=== PATIENT | male | born 1945 | race Caucasian/White ===

== ENCOUNTER 2023-01-03 06:00 | Observation (INO) ==
--- NOTE | 2022-12-12 13:23 | History & Physical Report ---
Date of Service December 12, 2022 date of surgery: 01/03/23 Procedure: Right Total Knee Arthroplasty Surgeon: Reginald Kauffman Assessment & Plan (1) Arthritis of right knee: Plan: Risk and benefits of the procedure were discussed in detail, patient would like to proceed with surgical invention. Plan for right total knee arthroplasty with overnight stay, plan for discharge home with home health physical therapy. Will place on aspirin 81 mg twice a day for 1 month postop, he will follow-up in the office 2 weeks after surgery, sooner if he is having any issues The risks and benefits have been discussed including, but not limited to, risk of infection, nerve injury, stiffness, loss of motion, failure to improve, etc. Reasonable outcomes and options of treatment were discussed. An explanation of appropriate alternatives to the procedure that may be advantageous were discussed and their risks and benefits, as well as the risks and benefits of not proceeding with treatment. I offered to answer any additional inquiries concerning the treatment involved. All the patient's questions were answered. The patient is agreeable, understanding of the treatment plan and alternatives, and wishes to proceed with the treatment plan. History of Present Illness Chief Complaint: Right knee pain Primary Care Provider: Caro Esqueda Modesto Cortez Is a pleasant 77-year-old male presented for preop evaluation prior to his right total knee replacement. He states has been a pain in that knee for many years now which is gradually worsened and is now affecting his daily activities including walking standing using stairs, he has undergone conservative measures including previous viscosupplementation as well as mult iple cortisone injections without much relief. He tried oral anti- inflammatories and Tylenol as well, as well as participated in physical therapy and using a knee sleeve. X-rays were reviewed which show advanced generative changes to his right knee and after discussing further care like to proceed with right total knee arthroplasty Allergies Allergy/AdvReac Type Severity Reaction Status Date / Time grass pollen-perennial rye, Allergy Unknown HAY FEVER Verified 12/11/22 10:16 standar No Known Drug Allergies Allergy Unknown NKDA Verified 12/11/22 10:16 pollen extracts Allergy Unknown HAY FEVER Verified 12/11/22 10:16 Home Medications Medication Instructions Recorded Confirmed Type albuterol sulfate 90 mcg/actuation 1 inh inhalation QID PRN Wheezing 12/11/22 12/11/22 History aerosol inhaler allopurinol 100 mg tablet 100 mg PO BID 12/11/22 12/11/22 History ascorbate calcium (vitamin C) 500 500 mg PO DAILY 12/11/22 12/11/22 History mg tablet cetirizine 10 mg tablet 10 mg PO QAM 12/11/22 12/11/22 History cholecalciferol (vitamin D3) 125 125 mcg PO DAILY 12/11/22 12/11/22 History mcg (5,000 unit) tablet (Vitamin D3) choline 600 mg tablet 1,000 mg PO DAILY 12/11/22 12/11/22 History clopidogrel 75 mg tablet (Plavix) 75 mg PO QAM 12/11/22 12/11/22 History coenzyme Q10 200 mg capsule (Co 200 mg PO DAILY 12/11/22 12/11/22 History Q-10) cyanocobalamin (vitamin B-12) 100 100 mcg PO DAILY 12/11/22 12/11/22 History mcg tablet folic acid 400 mcg tablet 0.4 mg PO DAILY 12/11/22 12/11/22 History furosemide 20 mg tablet (Lasix) 20 mg PO DAILY PRN Edema 12/11/22 12/11/22 History hydroxychloroquine 200 mg tablet 200 mg PO BID 12/11/22 12/11/22 History (Plaquenil) inositol-choline bit-B cplx-C 1 cap PO DAILY 12/11/22 12/11/22 History capsule losartan 100 mg tablet 100 mg PO QAM 12/11/22 12/11/22 History melatonin 10 mg tablet 10 mg PO HS PRN Sleep 12/11/22 12/11/22 History metoprolol tartrate 25 mg tablet 25 mg PO BID 12/11/22 12/11/22 History pantoprazole 40 mg tablet,delayed 40 mg PO QAM 12/11/22 12/11/22 History release spironolactone 25 mg tablet 25 mg PO QAM 12/11/22 12/11/22 History zinc acetate 50 mg (zinc) capsule 50 mg PO DAILY 12/11/22 12/11/22 History Past Med/Surg History Medical History Asthma rare res inh use Diverticular disease GERD (gastroesophageal reflux disease) Hypertension Implantable loop recorder present placed November 2022 Prostate cancer 2009 > radiation, no surgery Sleep apnea no device Stroke hx of x2 > reason for Loop recorder placement > most recent Jun 2022 > no residual effects > following with [facility] for neuro Surgical History H/O hemorrhoidectomy History of arthroscopy left shoulder History of cardiac cath over 10 yrs ago History of cataract surgery bilat History of colonoscopy History of tooth extraction Hx of detached retina repair clips and pins present > bilat Family History Mother Diabetes Brother Diabetes Sister Diabetes Social History Smoking Status: Never smoker Second Hand Exposure: No; Do You Dip or Chew Tobacco: No; Tobacco Cessation Education Requested by Patient: No Hx Alcohol Use: Yes Alcohol type: wine and hard liquor Hx Substance Use: No Preferred Language: Japanese Communication Ability: Effective Roll Operator Required: No Beliefs That Will Affect Care: None Current Living Situation: Spouse Other Information That Helps Us Care for You: No Feels Safe at Home: Yes Safety Concerns: Feels Safe At This Time Assistive Devices: Glasses Assistive Devices Comment: front teeth capped Review of Systems Review of Systems: All systems reviewed & are unremarkable except as noted in HPI & below Constitutional: no fever, no chills and no sweats Respiratory: no cough and no dyspnea Cardiovascular: no chest pain, no dyspnea and no orthopnea Gastrointestinal: no abdominal pain, no nausea and no vomiting Musculoskeletal: as per Subjective / HPI Physical Exam Physical Exam: HT: 5ft 9.5in WT: 105.7kg Constitutional: WD/WN, vitals as above no acute distress Respiratory: normal respiratory effort, lungs clear to auscultation no respiratory distress, no labored breathing and does not use accessory muscles Cardiovascular: RRR, no murmur, no edema Gastrointestinal (Abdomen): normal bowel sounds, soft, nontender, no hepatosplenomegaly Musculoskeletal: Knee: + knee abnormal to inspection (Right knee: ), + effusion (+1 effusion), + limited ROM of knee (ROM 0/3/110), + knee ROM with crepitation, + joint line tenderness (medial joint line) and + Kenia's sign positive; no deformity, no skin erythema, no ecchymosis, no valgus laxity, no varus laxity, anterior drawer test negative, Siria's sign negative and pivot shift test negative Results & Data Results & Data Diagnostic Findings Right Knee X-ray: Right knee series showing advanced degenerative changes to the right knee, narrowing of the medial compartment and patello-femoral joint with patellar spurring noted, findings showing joint space narrowing of the medial compartment and patello-femoral joint, osteophyte formation and subchondral sclerosis noted. overall varus alignment. no acute bony pathology noted.
--- NOTE | 2022-12-14 12:06 | PAT Medication Instructions ---
Medication Instructions Date of Service December 14, 2022 Home Medications albuterol sulfate 90 mcg/actuation aerosol inhaler 1 inh inhalation QID PRN Wheezing allopurinol 100 mg tablet 100 mg PO BID ascorbate calcium (vitamin C) 500 mg tablet 500 mg PO DAILY cetirizine 10 mg tablet 10 mg PO QAM cholecalciferol (vitamin D3) 125 mcg (5,000 unit) tablet (Vitamin D3) 125 mcg PO DAILY choline 600 mg tablet 1,000 mg PO DAILY clopidogrel 75 mg tablet (Plavix) 75 mg PO QAM coenzyme Q10 200 mg capsule (Co Q-10) 200 mg PO DAILY cyanocobalamin (vitamin B-12) 100 mcg tablet 100 mcg PO DAILY folic acid 400 mcg tablet 0.4 mg PO DAILY furosemide 20 mg tablet (Lasix) 20 mg PO DAILY PRN Edema hydroxychloroquine 200 mg tablet (Plaquenil) 200 mg PO BID inositol-choline bit-B cplx-C capsule 1 cap PO DAILY losartan 100 mg tablet 100 mg PO QAM melatonin 10 mg tablet 10 mg PO HS PRN Sleep metoprolol tartrate 25 mg tablet 25 mg PO BID pantoprazole 40 mg tablet,delayed release 40 mg PO QAM spironolactone 25 mg tablet 25 mg PO QAM zinc acetate 50 mg (zinc) capsule 50 mg PO DAILY ASK your prescriber and surgeon clopidogrel 75 mg tablet (Plavix) 75 mg PO QAM (will need to hold Plavix/clopidogrel for at least 7 days prior to surgery in order to get spinal anesthesia) hydroxychloroquine 200 mg tablet (Plaquenil) 200 mg PO BID STOP taking 2 weeks before surgery choline 600 mg tablet 1,000 mg PO DAILY coenzyme Q10 200 mg capsule (Co Q-10) 200 mg PO DAILY inositol-choline bit-B cplx-C capsule 1 cap PO DAILY DO NOT take the morning of surgery ascorbate calcium (vitamin C) 500 mg tablet 500 mg PO DAILY cetirizine 10 mg tablet 10 mg PO QAM cholecalciferol (vitamin D3) 125 mcg (5,000 unit) tablet (Vitamin D3) 125 mcg PO DAILY cyanocobalamin (vitamin B-12) 100 mcg tablet 100 mcg PO DAILY folic acid 400 mcg tablet 0.4 mg PO DAILY furosemide 20 mg tablet (Lasix) 20 mg PO DAILY PRN Edema losartan 100 mg tablet 100 mg PO QAM spironolactone 25 mg tablet 25 mg PO QAM zinc acetate 50 mg (zinc) capsule 50 mg PO DAILY Take morning of surgery With a small sip of water, OTHERWISE NOTHING TO EAT OR DRINK AFTER MIDNIGHT: albuterol sulfate 90 mcg/actuation aerosol inhaler 1 inh inhalation QID PRN Wheezing (use if needed; please bring with you to hospital day of surgery if possible) allopurinol 100 mg tablet 100 mg PO BID metoprolol tartrate 25 mg tablet 25 mg PO BID pantoprazole 40 mg tablet,delayed release 40 mg PO QAM Take evening before surgery albuterol sulfate 90 mcg/actuation aerosol inhaler 1 inh inhalation QID PRN Wheezing (if needed) allopurinol 100 mg tablet 100 mg PO BID furosemide 20 mg tablet (Lasix) 20 mg PO DAILY PRN Edema (if needed) melatonin 10 mg tablet 10 mg PO HS PRN Sleep (if needed) metoprolol tartrate 25 mg tablet 25 mg PO BID Other Notes If you have any questions please call us at [phone] or [phone] or [phone] or [phone]
--- NOTE | 2022-12-19 11:19 | Anesthesiology Consultation ---
Date of Service December 19, 2022 Assessment & Plan (1) Encounter for pre-operative examination: Chart Review Chart Review: Pending: Refer to Additional Notes / Consult section (pending head CT/head/neck CTA, and/or ECHO if available/done 06/2022, 06/2022 [facility] Discharge Summary, PCP clearance 12/25/22, neuro optimization, and cardio clearance) and Patient seen in Pre Admission Testing - Please fax [facility] for head CT, neck/head CTA, and/or ECHO as well as discharge summary from 06/2022 - Awaiting PCP clearance (12/25/22)- please send preop testing to [facility] - Send optimization form with request for clearance to neurologist (Dr. Zafar Oswald [place]) (did inquire about Plavix instructions- patient was also recommended to follow up with prescribing provider re: instructions) - Awaiting cardio clearance ([facility]) (patient called office to request clearance letter) * Pt is NOT an OPJ candidate Per [facility] appt on 12/19/22, patient denies any recent travel or large group activities. Pt had a sinus infection one month ago- treated- symptoms improved (Covid negative at that time). Pt continues with post nasal drip the past 1-2 weeks. Denies any known Covid exposures in the past 21 days. Pt denies Covid infection in the past 90 days. Pt is NOT vaccinated for Covid. Preop Covid testing at [facility] appt 12/19/22= negative. Educated on importance of using Covid pre cautions one week prior to surgery Last seen by cardio 11/28/22= Loop recorder implantation recommend due to Holter monitor showing no arrhythmias. Pt with hx of CVA- hospitalized 06/19/22-06/21/22. Risks vs benefits discussed and patient is agreeable. History Surgery Operation Date: 01/03/23 12:20 Proposed Procedures p Right Total Knee Arthroplasty - Reginald Kauffman DO Height/Weight Height: 5 ft 9.5 in Weight: 103.2 kg Allergies Allergy/AdvReac Type Severity Reaction Status Date / Time grass pollen-perennial rye, Allergy Unknown HAY FEVER Verified 12/11/22 10:16 standar No Known Drug Allergies Allergy Unknown NKDA Verified 12/11/22 10:16 pollen extracts Allergy Unknown HAY FEVER Verified 12/11/22 10:16 Medications Home Medications Medication Instructions Recorded Confirmed Last Taken albuterol sulfate 90 mcg/actuation 1 inh inhalation QID PRN Wheezing 12/11/22 12/11/22 Unknown aerosol inhaler allopurinol 100 mg tablet 100 mg PO BID 12/11/22 12/11/22 Unknown ascorbate calcium (vitamin C) 500 500 mg PO DAILY 12/11/22 12/11/22 Unknown mg tablet cetirizine 10 mg tablet 10 mg PO QAM 12/11/22 12/11/22 Unknown cholecalciferol (vitamin D3) 125 125 mcg PO DAILY 12/11/22 12/11/22 Unknown mcg (5,000 unit) tablet (Vitamin D3) choline 600 mg tablet 1,000 mg PO DAILY 12/11/22 12/11/22 Unknown clopidogrel 75 mg tablet (Plavix) 75 mg PO QAM 12/11/22 12/11/22 Unknown coenzyme Q10 200 mg capsule (Co 200 mg PO DAILY 12/11/22 12/11/22 Unknown Q-10) cyanocobalamin (vitamin B-12) 100 100 mcg PO DAILY 12/11/22 12/11/22 Unknown mcg tablet folic acid 400 mcg tablet 0.4 mg PO DAILY 12/11/22 12/11/22 Unknown furosemide 20 mg tablet (Lasix) 20 mg PO DAILY PRN Edema 12/11/22 12/11/22 Unknown hydroxychloroquine 200 mg tablet 200 mg PO BID 12/11/22 12/11/22 Unknown (Plaquenil) inositol-choline bit-B cplx-C 1 cap PO DAILY 12/11/22 12/11/22 Unknown capsule losartan 100 mg tablet 100 mg PO QAM 12/11/22 12/11/22 Unknown melatonin 10 mg tablet 10 mg PO HS PRN Sleep 12/11/22 12/11/22 Unknown metoprolol tartrate 25 mg tablet 25 mg PO BID 12/11/22 12/11/22 Unknown pantoprazole 40 mg tablet,delayed 40 mg PO QAM 12/11/22 12/11/22 Unknown release spironolactone 25 mg tablet 25 mg PO QAM 12/11/22 12/11/22 Unknown zinc acetate 50 mg (zinc) capsule 50 mg PO DAILY 12/11/22 12/11/22 Unknown Past Medical History Medical History Asthma rare rescue inhaler use currently breathing well controlled and stable Family history of diabetes mellitus Was on prophylactic Metformin- has since been d/c'ed Hgb A1C at [facility] appt 12/19/22 was 5.5 GERD (gastroesophageal reflux disease) well controlled and stable with Protonix Hyperlipidemia Currently no meds Hypertension Implantable loop recorder present placed November 2022 - due to Jun 2022 CVA Prostate cancer 2009 > radiation and Lupron injections, no surgery Sleep apnea no device Stroke 2011- ischemic stroke 06/18/2022 > reason for Loop recorder placement 11/2022 > no residual effects > following with [facility] for neuro Exercise / Class Metabolic Activity III < 4 Walking/Shop/Light housework (one flight of stairs - no chest pain, mild SOB (chronic)) Past Family History Family History Mother Diabetes Brother Diabetes Sister Diabetes Past Surgical History Surgical History H/O hemorrhoidectomy History of arthroscopy left shoulder History of cardiac cath over 10 yrs ago History of cataract surgery bilat History of colonoscopy History of tooth extraction Hx of detached retina repair clips and pins present > bilat Past Anesthesia History No Hx of Anesthesia Complications and No Family Hx of Anesthesia Complications History of PONV No Hx of PONV and No Hx of Motion Sickness Social History Smoking Status: Never smoker Do You Dip or Chew Tobacco: No Hx Alcohol Use: Yes Alcohol type: wine and hard liquor alcohol intake frequency: a few times a month Hx Substance Use: No substance use type: does not use Review of Systems - Occ localized left side chest pain- present x years - cardio aware- has had full work up with stress test (negative). Has been cleared by cardio for full physical activity with no limitations. Chronic x years- stable. Patient denies chest pain, shortness of breath at rest, cough, wheezing, palpitations. No hx of seizures, SC. No hx of blood clots or blood transfusions Physical Exam Vital Signs VITALS BP 118/66 P 72 TEMP 97.8 SP02 97% RESP 16 Constitutional no acute distress ENMT Mouth: no TMJ clicking Thyromental Distance: > or= 3.5 Finger Breadths (3.5) Mallampati Class: III Neck + limited neck extension Missing molars Caps to top front teeth Respiratory normal respiratory effort; no respiratory distress Auscultation: lungs clear to auscultation bilaterally; no wheezes Cardiovascular Rate/Rhythm: regular rate and regular rhythm Heart Sounds: no murmur Vessels: no carotid bruit Musculoskeletal Spine: + pain with cervical ROM (mild stiffness ) Extremities: extremities normal to inspection Psychiatric Orientation: alert Lab Results Anesthesia Preop Results Results Anesthesia Widget: WBC 4.97 K/ul (4.8-10.8) 12/19/22 Hgb 14.0 g/dl (14.0-18.0) 12/19/22 Hct 39.8 % (42.0-52.0) L 12/19/22 Plt 221 K/uL (130-400) 12/19/22 Na 138 mmol/L (136-145) 12/19/22 K 4.1 mmol/L (3.5-5.1) 12/19/22 Cl 104 mmol/L (98-107) 12/19/22 CO2 27 mmol/L (21-32) 12/19/22 BUN 18 mg/dl (6-23) 12/19/22 Creat 1.18 mg/dl (0.6-1.4) 12/19/22 Glucose Level 89 mg/dl (70-99(Fasting)) 12/19/22 PT 10.7 Seconds (9.0-12.0) 12/19/22 PTT 28.5 Seconds (21.0-31.0) 12/19/22 INR 1.0 (0.9-1.1) 12/19/22 HA1c 5.5 % (4.5-5.6) 12/19/22 Urine Color Yellow 12/19/22 Urine Appearance Clear (Clear) 12/19/22 Urine pH 5.5 (4.5-7.5) 12/19/22 Urine Specific Delta 1.017 (1.000-1.030) 12/19/22 Urine Protein Negative (Negative) 12/19/22 Urine Glucose (UA) Negative (Negative) 12/19/22 Urine Ketones Negative (Negative) 12/19/22 Urine Blood Negative (Negative) 12/19/22 Urine Nitrite Negative (Negative) 12/19/22 Urine Bilirubin Negative (Negative) 12/19/22 Urine Urobilinogen Negative (Negative) 12/19/22 Urine Leukocyte Esterase Negative (Negative) 12/19/22 COVID-19 PCR NEGATIVE (Negative) 12/19/22 Blood Type O Negative 12/19/22 Antibody Screen NEGATIVE 12/19/22 Testing Electrocardiogram Date: 12/19/22 Findings: + NSR @ (74bpm) Normal EKG per cardio Chest X-Ray Date: 12/19/22 Findings: + NAD FINDINGS: PA and lateral chest radiographs are compared to study dated 09/07/2015. An electronic device projects over the left chest wall. The cardiomediastinal silhouette is unremarkable noting atherosclerotic calcification of the thoracic aorta. The lungs and pleural spaces are clear. There is no pneumothorax. The skeletal structures are osteopenic. The bony thorax appears intact. Degenerative change is noted in the spine. Echocardiogram Date: 02/15/21 EF: 55-60% LV Function: normal RWMA: + none Other Findings: no LVH or no diastolic dysfunction Valvular Disease: + no significant valvular disease Stress Test Date: 03/08/22 Lexiscan Cardiolite myocardial perfusion imaging is negative for myocardial ischemia and/or prior infarction Normal LV systolic function, EF >65% No transient ischemic dilation EKG during Lexiscan negative for ischemia
[~2023-01-03 06:00] MED LIST: ACETAMINOPHEN 500 MG TAB PO SCH; CeleBREX 200 MG CAP PO SCH; FAMOTIDINE 20 MG TAB PO SCH; LR 500ML BOLUS, THEN 15ML/HR IV SCH; LR 60ML/HR IV SCH; METOCLOPRAMIDE HCL 10 MG TABLET PO SCH; ROPIVACAINE 0.5% HCL/PF 150 MG, BUPIVACAINE 0.75% MPF 20 ML, EPINEPHrine 30MG/30ML (OR ... INSTIL SCH; ceFAZolin 2000MG 2,000 MG/15 ML SYR IV SCH; dexAMETHasone 4 MG TAB PO SCH
[2023-01-03] MEDS ORDERED: PROPOFOL IV EMULSION 10 MG/ML 20 ML VIAL IV ONE (06:32)
[2023-01-03] MEDS ORDERED: ONDANSETRON INJ 2 MG/ML 2 ML VIAL ONE (06:32)
[2023-01-03] MEDS ORDERED: DEXAMETHASONE SOD INJ 4 MG/ML VIAL ONE ×2 (06:32→07:30)
[2023-01-03] MEDS ORDERED: MIDAZOLAM HCL 1 MG/ML 2ML VIAL ONE (06:33)
[2023-01-03] MEDS ORDERED: fentaNYL citrate PF 100 MCG/2 ML VIAL ONE (06:33)
[2023-01-03] MEDS ORDERED: LIDOCAINE 2% 2 ML VIAL/AMP(20MG/ML) INFIL ONE (06:33)
[2023-01-03] MEDS ORDERED: ORTHO JOINT ANESTHETIC ONE (07:05)
--- NOTE | 2023-01-03 07:19 | History & Physical Bridge Note ---
Date of Service January 03, 2023 History & Physical Bridge Note I have examined the patient, reviewed the History & Physical and in the interval since the performance of the History & Physical I have noted the following changes of clinical significance: no changes noted
[2023-01-03] MEDS ORDERED: BUPIVACAINE 0.5 % 5 MG/1 ML PF 10ML VIAL ONE (07:30)
[2023-01-03] MEDS ORDERED: EPINEPHrine INJ 1 MG/ML AMP ONE (07:30)
[2023-01-03] MEDS ORDERED: BUPIVACAINE 0.25% PF 30 ML VIAL ONE (07:30)
[2023-01-03] MEDS ORDERED: TRANEXAMIC ACID / 0.7% NACL 1,000 MG/100 ML BAG IV ONE ×2 (07:30)
[2023-01-03] MEDS ORDERED: TRANEXAMIC ACID / 0.7% NACL 1000MG/100ML BAG IV ONE (07:32)
[2023-01-03] MEDS ORDERED: ONDANSETRON INJ 2 MG/ML 2 ML VIAL IV PRN ×2 (08:50→11:20)
[2023-01-03] MEDS ORDERED: fentaNYL citrate PF 100 MCG/2 ML VIAL IV PRN (08:50)
[2023-01-03] MEDS ORDERED: ATROPINE SULFATE 0.1 MG/ML 10ML SYR IV PRN (08:50)
[2023-01-03] MEDS ORDERED: ePHEDrine sulfate 50 MG/ML AMP IV PRN (08:50)
--- NOTE | 2023-01-03 09:48 | Operative Report ---
Post Operative Report Pre & Post Diagnosis Operation Date: 01/03/23 08:00 Pre-Op Diagnosis: Right Knee Osteoarthritis Post-Op Diagnosis: Right Knee Osteoarthritis I identified the patient and participated in the time-out.: Yes Procedure Operation Date: 01/03/23 08:00 Actual Procedures p Right Total Knee Arthroplasty(Right) utilizing [employer] journey 2 long block total knee arthroplasty size femur 6 tibia 6 poly 9 patella 35 melita Kauffman DO Surgeon Reginald Kauffman DO Ehs Engineer Piotr MAXWELL Estimated Blood Loss 5 Findings Consistent with Post-Op Diagnosis Patient presents with severe end-stage tricompartmental degenerative joint disease right knee is varus alignment subchondral sclerosis marginal osteophytes subchondral cystic changes eburnated [id number] with moderate to large effusion Specimens Bone card Drains Medium bore Hemovac Anesthesia Type MAC Spinal Regional Complications none Disposition Accompanied Patient To Recovery: No Disposition: Recovery Room Indications Patient presents for right total knee arthroplasty and after failed attempted conservative management getting physical therapy anti-inflammatories relative rest activity modification corticosteroid injection viscosupplementation the above intraoperative findings were noted Description of Procedure After proper prepping and draping of the Right lower extremity anterior midline incision was made over the region of the extensor extensor mechanism after meticulous hemostasis was obtained and maintained in subcutaneous tissues a medial parapatellar incision was made The patella was subluxed lateralward the medial lateral gutter were cleaned from any hypertrophic synovitis and scar tissue of the distal femoral block was placed and the distal femoral osteotomy cut was made subsequently the chamfers anterior and posterior osteotomy cuts were made utilizing the 4-in-1 block the tibia was subsequently subluxed anteriorward medial and ateral meniscal remnants were excised in their entirety remnants of the anterior and posterior cruciate ligaments were excised in their entirety excellent exposure of the proximal tibia was obtained the tibial osteotomy guide was placed on the proximal tibial osteotomy cut was made once again the knee was irrigated with copious amounts of sterile saline solution the patella was subsequently everted lateralward thickened scar tissue around the patella was removed the patella was subsequently cut utilizing a freehand technique and was drilled prepared for final preparation and placement of patella socially flexion-extension gaps were checked and the equal and symmetric trials were placed to the appropriate femoral and tibial trials with poly-spacer being placed for equal flexion and extension gaps and full range of motion including extension to 0 and flexion to 140 the trial components after having been taken to recovery range of motion was subsequently removed meticulous hemostasis was obtained and maintained subsequently a knee block injection of joint cocktail including ropivacaine 0.5% 150 mg. Bupivacaine 0.5% epinephrine 1-200,030 mL's toradol 30 mg dexamethasone 4 mg ketamine 10 mg clonidine 100 micrograms normal saline solution 30 mg was infiltrated into the soft tissues of the posterior knee medial lateral gutters and periosteal synovium special attention was paid to protect neurovascular structures at all times subsequently trial components having been removed the knee was irrigated with sterile saline solution. debris was removed the proximal tibia was subsequently prepared and was made ready for the placement of the tibial component tibial component was also cemented and tamped into position the femoral component was subsequently placed and cemented in the position the patellar component was subsequently cemented in position because hemostasis once again obtained and maintained wound having been thoroughly irrigated with debridement and debridement lavage was performed as well as a medial parapatellar incision closed with #1 Vicryl in interrupted fashion subcutaneous was closed with #2 Vicryl skin was closed with skin clips. PA-C was necessary for prepping and drapping as well as wound closure of deep fascia Sub cutaneous tissue and skin and was necessary for the case. A sterile compressive dressing was placed patient was taken to recovery in stable condition of report dictated by Jamari I attest to the content of the Intraoperative Record and any orders documented therein. Any exceptions are noted below.Due to the complex nature of the procedure, the entire surgery was performed with the operational assistance of Piotr BLAND. The sugar laboratory assistant, under direct supervision, was involved in the actual performance of all aspects of the surgical procedure including hemostasis, tissue retraction and incision, instrument management, patient positioning, and wound closure. I attest to the content of the Intraoperative Record and any orders documented therein. Any exceptions are noted below.
--- NOTE | 2023-01-03 11:02 | Anesthesiology Progress Note ---
Date of Service January 03, 2023 Anesthesia Post Procedure Vital Signs Vital Signs: Temp Pulse Pulse Resp BP Pulse Ox O2 Del Method 01/03/23 10:40 78 17 107/57 L 92 Room Air 01/03/23 10:50 36.4 C L 72 18 114/51 L 94 Room Air 01/03/23 10:30 75 21 111/59 L 98 Oxymask 01/03/23 10:21 36.5 C 73 17 96/52 L 97 Oxymask 01/03/23 06:34 36.6 C 68 20 131/74 96 Room Air O2 Flow Rate 01/03/23 10:40 01/03/23 10:50 01/03/23 10:30 4 01/03/23 10:21 6 01/03/23 06:34 Pain Intensity Right Knee: Pain Intensity: 7 Transfer of Care Handoff Completed per policy Notes Mental Status: alert / awake / arousable Patient Amnestic to Procedure: Yes Nausea / Vomiting: adequately controlled Pain: adequately controlled Airway Patency, RR, SpO2: stable & adequate BP & HR: stable & adequate Hydration State: stable & adequate Neuraxial Anesthesia: was administered and sensory block is resolving Anesthetic Complications: no major complications apparent
--- NOTE | 2023-01-03 11:09 | XRay Report ---
XR knee RT 1 or 2V routine CLINICAL HISTORY: Postoperative evaluation. COMPARISON: None FINDINGS: Alignment of the total right knee arthroplasty is anatomic. There is no periprosthetic fra cture. No unexpected radiopaque foreign bodies. Skin isaac and drains are present. IMPRESSION: Expected findings following total right knee arthroplasty. ACT 112: Negative or not required by law. Electronically signed by: Rakan Davis M.D. 01/03/2023 11:07 AM
[2023-01-03] MEDS ORDERED: bisacodyL 10 MG SUPP PR PRN (11:20)
[2023-01-03] MEDS ORDERED: FUROSEMIDE 20 MG TAB PO PRN (11:20)
[2023-01-03] MEDS ORDERED: diphenhydrAMINE 50 MG/ML VIAL IV PRN (11:20)
[2023-01-03] MEDS ORDERED: HYDROmorphone INJ 0.5 MG/0.5 ML SYR IV PRN (11:20)
[2023-01-03] MEDS ORDERED: ALBUTEROL HFA 8 GM INHALER INH PRN (11:20)
[2023-01-03] MEDS ORDERED: SODIUM CHLORIDE 0.9% 1000ML 1,000 ML IV SCH (11:20)
[2023-01-03] MEDS ORDERED: NALOXONE HCL 0.4 MG/1 ML VIAL/CARP IV PRN (11:20)
[2023-01-03] MEDS ORDERED: MAGNESIUM HYDROXIDE SUSP 30 ML UDC PO PRN (11:20)
[2023-01-03] MEDS ORDERED: MELATONIN 3 MG TAB PO PRN (11:35)
[2023-01-03] MEDS ORDERED: ePHEDrine sulfate 50 MG/ML AMP ONE (12:24)
[2023-01-03] MEDS ORDERED: PHENYLEPHRINE 100MCG/ML 5ML SYR ONE (12:24)
[2023-01-03] MEDS: ACETAMINOPHEN 500 MG TAB PO SCH ×2 (14:07→21:33)
[2023-01-03] MEDS: oxyCODONE HCL IR 5 MG TAB (IMMEDIATE RELEASE) PO PRN ×2 (15:39→20:40)
[2023-01-03] MEDS: ceFAZolin 2000MG 2,000 MG/15 ML SYR IV SCH ×2 (16:10→23:33)
[2023-01-03] MEDS: allopurinoL 100 MG TAB PO SCH (20:39)
[2023-01-03] MEDS: DOCUSATE SODIUM 100 MG CAP PO SCH (20:39)
[2023-01-03] MEDS: ASPIRIN 81 MG ECTAB PO SCH (20:40)
[2023-01-03] MEDS: METOPROLOL TARTRATE 25 MG TAB PO SCH (20:40)
[2023-01-03] MEDS ORDERED: SENNA 8.6 MG TAB PO SCH (21:00)
[2023-01-04] MEDS: ACETAMINOPHEN 500 MG TAB PO SCH (05:06)
--- NOTE | 2023-01-04 06:48 | Orthopedic Progress Note ---
Date of Service January 04, 2023 Assessment & Plan (1) History of total right knee replacement: Plan: POD #1 s/p Right TKA pt/ot dvt proph with [facility]/SCD/ASA plan for d/c home with HHPT Admission and Anticipated Discharge Date Admission Date: January 03, 2023 Subjective POD #1 s/p Right TKA Review of Systems Constitutional: no fever, no chills and no sweats Respiratory: no cough and no dyspnea Cardiovascular: no chest pain and no dyspnea Gastrointestinal: no abdominal pain, no nausea and no vomiting Physical Exam Physical Exam: Vital Signs Temp 36.4 C L 01/04/23 03:06 Pulse 76 01/04/23 03:06 Resp 16 01/04/23 03:06 BP 130/74 01/04/23 03:06 Pulse Ox 98 01/04/23 03:06 O2 Del Method Room Air 01/04/23 03:06 O2 Flow Rate 4 01/03/23 10:30 Intake & Output 01/03/23 01/03/23 01/04/23 06:59 18:59 06:59 Intake Total 1700 / 2901.667 1201.667 / 2901.66 7 Output Total 115 / 240 125 / 240 Balance 1585 / 2661.667 1076.667 / 2661.66 7 Weight 104.3 kg 104.3 kg Intake: IV 400 / 1301.667 901.667 / 1301.667 Lactated Ringe r's 1,000 ml @ 15 200 / 200 mls/hr IV .Q24 H [facility] Rx#: [id number] Sodium Chlorid e 0.9% 1000ML 1, 901.667 / 901.667 000 ml @ 100 m ls/hr IV .Q10H [facility] Rx#:[id number] 20 Tranexamic Aci d / 0.7% NaCl 1, 200 / 200 000 mg In 100 ml @ 600 mls/hr IV ONE ONE Rx# :[id number] IV Perioperative 1200 / 1200 Oral 100 / 400 300 / 400 Output: Estimated Blood Loss 5 / 5 Drain Output 110 / 235 125 / 235 Right Knee Hem ovac 110 / 235 125 / 235 Other: # Unmeasured Voi ds 1 1 Weight Measureme nt Method Standing Scale Constitutional: WD/WN, vitals as above Musculoskeletal: Right Leg: NVDI, calf SNT, negative phillip sign. DP palpable, able to wiggle toes/ankle movement without difficulty. dressing clean dry and intact. Results & Data Vital Signs (Past 12 Hours) Vital Signs Temp Pulse Resp BP Pulse Ox O2 Del Method 01/04/23 03:06 36.4 C L 76 16 130/74 98 Room Air 01/03/23 22:59 36.4 C L 89 16 131/75 95 Room Air 01/03/23 20:29 36.5 C 101 H 14 132/72 95 Room Air 01/03/23 19:16 36.4 C L 97 H 18 131/73 98 Room Air Laboratory Results Impressions Knee X-Ray 01/03/23 10:27 XR knee RT 1 or 2V routine CLINICAL HISTORY: Postoperative evaluation. COMPARISON: None FINDINGS: Alignment of the total right knee arthroplasty is anatomic. There is no periprosthetic fracture. No unexpected radiopaque foreign bodies. Skin isaac and drains are present. IMPRESSION: Expected findings following total right knee arthroplasty. ACT 112: Negative or not required by law. Electronically signed by: Rakan Davis M.D. 01/03/2023 11:07 AM
[2023-01-04 07:04] LABS: Hematocrit (blood only) 34.1 % (42.0-52.0); Hemoglobin 11.6 g/dl (14.0-18.0); Mean Corpuscular Hemoglobin 31.4 pg (25.0-34.0); Mean Corpuscular Volume 92.4 fL (80.0-100.0); Mean Platelet Volume 9.6 fL (9.4-12.4); Platelet Count 212 K/uL (130-400); RDW Coefficient of Variation 13.5 % (11.5-14.5); RDW Standard Deviation 44.7 fL (36.4-46.3); Red Blood Count 3.69 M/uL (4.70-6.10); White Blood Count 12.76 K/ul (4.8-10.8)
[2023-01-04 07:21] LABS: BUN Creatinine Ratio 21.5 (10-20); Creatinine Clr Calc Pharmacy 58.9 ml/min; Est GFR (African American) 61.9 ml/min; Est GFR (Non-African American) 53.4 ml/min; Potassium 4.6 mmol/L (3.5-5.1)
[2023-01-04] MEDS: METOPROLOL TARTRATE 25 MG TAB PO SCH (08:12)
[2023-01-04] MEDS: allopurinoL 100 MG TAB PO SCH (08:12)
[2023-01-04] MEDS: ASPIRIN 81 MG ECTAB PO SCH (08:12)
[2023-01-04] MEDS: DOCUSATE SODIUM 100 MG CAP PO SCH (08:12)
[2023-01-04] MEDS ORDERED: LOSARTAN POTASSIUM 50 MG TAB PO SCH (09:00)
[2023-01-04] MEDS ORDERED: NON-FORMULARY MEDICATION (Coenzyme Q10 [Co Q-10] 200 mg Capsule) PO SCH (09:00)
[2023-01-04] MEDS ORDERED: CLOPIDOGREL BISULFATE 75 MG TAB PO SCH (09:00)
[2023-01-04] MEDS ORDERED: SPIRONOLACTONE 25 MG TAB PO SCH (09:00)
[2023-01-04] MEDS ORDERED: MULTIVITAMIN TAB PO SCH (09:00)
[2023-01-04] MEDS ORDERED: CHOLECALCIFEROL 5,000 UNITS 125 MCG TAB PO SCH (09:00)
[2023-01-04] MEDS ORDERED: PANTOprazole 40 MG TAB PO SCH (09:00)
[2023-01-04] MEDS ORDERED: CYANOCOBALAMIN (B-12) 100 MCG TABLET PO SCH (09:00)
[2023-01-04] MEDS ORDERED: FOLIC ACID 400 MCG TAB PO SCH (09:00)
[2023-01-04] MEDS ORDERED: CETIRIZINE HCL 10 MG TABLET PO SCH (09:00)
[2023-01-04] MEDS: oxyCODONE HCL IR 5 MG TAB (IMMEDIATE RELEASE) PO PRN (09:50)
--- NOTE | 2023-01-05 11:24 | Discharge Summary ---
Date of Service January 05, 2023 Admission HPI Per Admitting Provider Ann Is a pleasant 77-year-old male presented for preop evaluation prior to his right total knee replacement. He states has been a pain in that knee for many years now which is gradually worsened and is now affecting his daily activities including walking standing using stairs, he has undergone conservative measures including previous viscosupplementation as well as multiple cortisone injections without much relief. He tried oral anti- inflammatories and Tylenol as well, as well as participated in physical therapy and using a knee sleeve. X-rays were reviewed which show advanced generative changes to his right knee and after discussing further care like to proceed with right total knee arthroplasty Admission Exam Per Admitting Provider Physical Exam: HT: 5ft 9.5in WT: 105.7kg Constitutional: WD/WN, vitals as above no acute distress Respiratory: normal respiratory effort, lungs clear to auscultation no respiratory distress, no labored breathing and does not use accessory muscles Cardiovascular: RRR, no murmur, no edema Gastrointestinal (Abdomen): normal bowel sounds, soft, nontender, no hepatosplenomegaly Musculoskeletal: Knee: + knee abnormal to inspection (Right knee: ), + effusion (+1 effusion), + limited ROM of knee (ROM 0/3/110), + knee ROM with crepitation, + joint line tenderness (medial joint line) and + Kenia's sign positive; no deformity, no skin erythema, no ecchymosis, no valgus laxity, no varus laxity, anterior drawer test negative, Siria's sign negative and pivot shift test negative Principal Diagnosis Right knee osteoarthritis Discharge Data Allergies Allergy/AdvReac Type Severity Reaction Status Date / Time grass pollen-perennial rye, Allergy Unknown HAY FEVER Verified 01/03/23 06:21 standar No Known Drug Allergies Allergy Unknown NKDA Verified 01/03/23 06:21 pollen extracts Allergy Unknown HAY FEVER Verified 01/03/23 06:21 Procedures Performed Operation Date: 01/03/23 08:00 Actual Procedures p Right Total Knee Arthroplasty(Right) - Reginald Davies DO Ordered Studies 01/03/23 05:00 US - OR guided needle placemen Routine Hospital Course (1) History of total right knee replacement: Patient:ANN LOVE Admit Date:01/03/23 MR#:[id number] Att Phy:Reginald Davies D.O. Acct ID:[id number] Juju Phy:Allan Araujo CRNP Date:1945 Fam Phy: Age:77 Location:3E Sex:M Room/Bed:[facility] cc: ~ *NOTICE TO RECEIVING [employer]/AGENCY This information is strictly Confidential and protected under [place] law. [place] law prohibits you from making any further disclosure of this information unless further disclosure is expressly permitted by the written consent of the person to whom it pertains or is authorized by law. A general authorization for the release of medical or other information is not sufficient for this purpose. Hospital accepts no responsibility if the information is made available to any other person, INCLUDING THE PATIENT. Date of Service January 04, 2023 Assessment & Plan (1) History of total right knee replacement: Plan: POD #1 s/p Right TKA pt/ot dvt proph with [facility]/SCD/ASA plan for d/c home with HHPT Admission and Anticipated Discharge Date Admission Date: January 03, 2023 Subjective POD #1 s/p Right TKA Review of Systems Constitutional: no fever, no chills and no sweats Respiratory: no cough and no dyspnea Cardiovascular: no chest pain and no dyspnea Gastrointestinal: no abdominal pain, no nausea and no vomiting Physical Exam Physical Exam: Vital Signs Temp 36.4 C L 01/04/23 03:06 Pulse 76 01/04/23 03:06 Resp 16 01/04/23 03:06 BP 130/74 01/04/23 03:06 Pulse Ox 98 01/04/23 03:06 O2 Del Method Room Air 01/04/23 03:06 O2 Flow Rate 4 01/03/23 10:30 Intake & Output 01/03/23 01/03/23 01/04/23 06:59 18:59 06:59Intake Total 1700 / 2901.667 1201.667 / 2901.66 7 Output Total 115 / 240 125 / 240 Balance 1585 / 2661.667 1076.667 / 2661.66 7 Weight 104.3 kg 104.3 kg Intake: IV 400 / 1301.667 901.667 / 1301.667 Lactated Ringe r's 1,000 ml @ 15 200 / 200 mls/hr IV .Q24 H [facility] Rx#: [id number] Sodium Chlorid e 0.9% 1000ML 1, 901.667 / 901.667 000 ml @ 100 m ls/hr IV .Q10H [facility] Rx#:[id number] 20 Tranexamic Aci d / 0.7% NaCl 1, 200 / 200 000 mg In 100 ml @ 600 mls/hr IV ONE ONE Rx# :[id number] IV Perioperative 1200 / 1200 Oral 100 / 400 300 / 400 Output: Estimated Blood Loss 5 / 5 Drain Output 110 / 235 125 / 235 Right Knee Hem ovac 110 / 235 125 / 235 Other: # Unmeasured Voi ds 1 1 Weight Measureme nt Method Standing Scale Constitutional: WD/WN, vitals as above Musculoskeletal: Right Leg: NVDI, calf SNT, negative phillip sign. DP palpable, able to wiggle toes/ankle movement without difficulty. dressing clean dry and intact. Results & Data Vital Signs (Past 12 Hours) Vital Signs Temp Pulse Resp BP Pulse Ox O2 Del Method 01/04/23 03:06 36.4 C L 76 16 130/74 98 Room Air 01/03/23 22:59 36.4 C L 89 16 131/75 95 Room Air 01/03/23 20:29 36.5 C 101 H 14 132/72 95 Room Air 01/03/23 19:16 36.4 C L 97 H 18 131/73 98 Room Air Laboratory Results Impressions Knee X-Ray 01/03/23 10:27 XR knee RT 1 or 2V routine CLINICAL HISTORY: Postoperative evaluation. COMPARISON: None FINDINGS: Alignment of the total right knee arthroplasty is anatomic. There is no periprosthetic fracture. No unexpected radiopaque foreign bodies. Skin isaac and drains are present. IMPRESSION: Expected findings following total right knee arthroplasty. ACT 112: Negative or not required by law. Electronically signed by: Rakan Davis M.D. 01/03/2023 11:07 AM Signed By: <Electronically signed by Andrés Morrison PA-C> 01/04/23 0650 <Electronically signed by Sahshank Lujan M.D.> 01/04/23 1340 Created:01/04/23 0647 Total Time Total Time Spent Total Time Spent (In Minutes): 5 Discharge Plan Discharge Items Patient Disposition: Home - Home Health Services Reason For Visit: RIGHT KNEE DJD Discharge Diagnosis: Right knee osteoarthritis Activity: Per Instructions section Weightbearing Comment: as tolerated with walker Non-emergency contact: Surgeon Call non-emergency contact if: you have any medication questions, your pain is not controlled, your temperature is above 101.5, your wound has increased redness and your wound has increased drainage Follow-up/Referrals: Reginald Davies DO [Surgeon] - ( follow-up with Dr. Davies or his PA in 2 weeks from the day of your surgery for your first postoperative visit.) Caro Salvador D.O. [Non-Staff] - Diet: Regular Addtl Attending Provider Instructions: ACTIVITY RECOMMENDATIONS: SELF CARE INSTRUCTIONS AFTER TOTAL KNEE REPLACEMENT A. You may need to continue a physical therapy program after discharge from the hospital. There are several options available to you. Your doctor will assist you in selecting the best one for you. 1. An out-patient facility 2 to 3 times a week for therapy or home therapy. 2. Continue working on all exercises taught to you in the hospital. Your goals should be to increase bending of your knee to 90 degrees and beyond and to fully straighten your knee. B. You may progress at your own pace from walking with a walker or crutches to a cane; then to no assistive devices. C. Make walking a part of your daily routine. Be up as much as comfortable with rest periods throughout the day. Rest with leg elevation is very important. Use the ice wrap frequently for the first 3-4 weeks. D. There are no restrictions on activities. You may ride in a car, shop, participate in manager urgent care and all social activities. E. Wear the long elastic stockings (NANCY hose) 20 hours a day for 2 weeks after surgery. They can be removed several times a day for laundering and for a bath. F. You may shower, no tub baths until cleared by your doctor. SPECIAL CARE INSTRUCTIONS: VERY IMPORTANT TO READ AND REVIEW A. There are a few signs you need to watch for after you are home. Call [facility] if you notice any of the followin. Increased severe knee pain. Some pain is expected especially when you exercise. 2. Increased swelling in your leg or knee; pain or swelling of the calf muscle in either lower leg. 3. Any fluid drainage from the incision. 4. Shortness of breath or chest pain. B. Please call [facility] at if you have any concerns or questions about your operation or recovery. The doctor or his nurse will return your call promptly. C. You must take antibiotics before dental work, bladder, bowel or other park tammi. Your doctor will provide you with a permanent care to carry describing this precaution. IMPORTANT: * REMEMBER TO TAKE ASPIRIN, 81 MG, TWICE DAILY FOR 4 WEEKS UNLESS OTHERWISE DIRECTED. THIS IS YOUR BLOOD THINNER. * HIGH RISK PATIENTS MAY BE PRESCRIBED A STRONGER BLOOD THINNER. THIS WILL BE PROVIDED AT DISCHARGE. * CALL IF INCREASED PAIN, REDNESS, DRAINAGE OR FEVER GREATER THAT 101. * WEAR NANCY HOSE 20 HOURS PER DAY FOR 2 WEEKS. * DMITRY Dressing - This is a large suction dressing covering your incision. This will help pull any excess drainage from the wound and allow your incision to heal properly. You may shower with this if you can keep the unit outside of the shower. If any bleeding or leakage is noted please call your doctor's office. This will remain on your incision for 7 days and then should be removed. This can be done yourself or by the home nursing staff if applicable. The entire unit is disposable once removed. Once removed, keep incision clean and dry. If redness or drainage is noted, please call your surgeon. . FOLLOW UP VISIT: If appointment is not already scheduled: Please call [facility] to make a follow-up appointment for 2 weeks after your surgery at . Pending Studies at Discharge: No Stand-Alone Forms: My [facility], Smoking Cessation Medications and DC Order Prescriptions: New acetaminophen 500 mg tablet 1,000 mg PO Q8 21 Days Qty: 126 0RF aspirin 81 mg tablet,delayed release (DR/EC) 81 mg PO BID 30 Days Qty: 60 0RF celecoxib [Celebrex] 200 mg capsule 200 mg PO BID 30 Days Qty: 60 0RF cefadroxil 500 mg capsule 500 mg PO BID 14 Days Qty: 28 0RF docusate sodium 100 mg Capsule 100 mg PO BID Qty: 20 0RF oxycodone 5 mg tablet 5 - 10 mg PO Q6H PRN (Reason: pain) Qty: 30 0RF Rx Instructions: ongoing therapy, supervising dr bora davies. max 6 tabs in 24 hours Continued zinc acetate 50 mg (zinc) Capsule 50 mg PO DAILY cyanocobalamin (vitamin B-12) 100 mcg Tablet 100 mcg PO DAILY cetirizine 10 mg Tablet 10 mg PO QAM clopidogrel [Plavix] 75 mg Tablet 75 mg PO QAM allopurinol 100 mg Tablet 100 mg PO BID folic acid 400 mcg Tablet 0.4 mg PO DAILY spironolactone 25 mg Tablet 25 mg PO QAM pantoprazole 40 mg Tablet,Delayed Release (Dr/Ec) 40 mg PO QAM ascorbate calcium (vitamin C) 500 mg Tablet 500 mg PO DAILY furosemide [Lasix] 20 mg Tablet 20 mg PO DAILY PRN (Reason: Edema) losartan 100 mg Tablet 100 mg PO QAM choline 600 mg Tablet 1,000 mg PO DAILY inositol-choline bit-B cplx-C Capsule 1 cap PO DAILY metoprolol tartrate 25 mg Tablet 25 mg PO BID coenzyme Q10 [Co Q-10] 200 mg Capsule 200 mg PO DAILY cholecalciferol (vitamin D3) [Vitamin D3] 125 mcg (5,000 unit) Tablet 125 mcg PO DAILY melatonin 10 mg Tablet 10 mg PO HS PRN (Reason: Sleep) albuterol sulfate 90 mcg/actuation Hfa Aerosol Inhaler 1 inh INHALATION QID PRN (Reason: Wheezing) Held hydroxychloroquine [Plaquenil] 200 mg Tablet 200 mg PO BID Hold Instructions: You will need to stop your Plaquenil for 2 weeks please discuss resuming your Plaquenil with your surgeon or his PA at your first postoperative visit. Admission Data Admit Date/Time: 01/03/23 10:27 Attending Provider: Reginald Davies Admit Provider: Reginald Davies Primary Care Provider: Allan Araujo Other Interventions: Discharge Summary Assessment (RN) Last Done: 01/04/23 08:58
== END 2023-01-04 10:43 | disposition home health service (06) ==
LOC: 3E 06:00 → ASU 06:00

== ENCOUNTER 2023-07-17 07:54 | Observation (INO) ==
--- NOTE | 2023-06-22 13:05 | History & Physical Report ---
Date of Service June 22, 2023 date of surgery: 07/17/23 Procedure: Left Total Knee Arthroplasty Surgeon: Reginald Kauffman, DO Assessment & Plan (1) Arthritis of knee, left: Plan: Risk and benefits of the procedure were discussed in detail, patient would like to proceed with surgical invention. Plan for a left total knee arthroplasty with overnight stay, plan for discharge home with home health physical therapy. Will place on aspirin 81 mg twice a day for 1 month postop, he will follow-up in the office 2 weeks after surgery, sooner if he is having any issues The risks and benefits have been discussed including, but not limited to, risk of infection, nerve injury, stiffness, loss of motion, failure to improve, etc. Reasonable outcomes and options of treatment were discussed. An explanation of appropriate alternatives to the procedure that may be advantageous were discussed and their risks and benefits, as well as the risks and benefits of not proceeding with treatment. I offered to answer any additional inquiries concerning the treatment involved. All the patient's questions were answered. The patient is agreeable, understanding of the treatment plan and alternatives, and wishes to proceed with the treatment plan. Please note the above document was generated using voice recognition software. It may contain grammatical, syntax or spelling errors. Any formal questions or concerns about the content, text or information contained within the body of this dictation should be directly addressed to the provider for clarification History of Present Illness Chief Complaint: left knee pain Primary Care Provider: MADHAVI Salazar Diego Is a pleasant 77-year-old male presented for preop evaluation prior to his left total knee replacement. He states that his pain in that knee is ongoing and gradually worsened and is now affecting his daily activities including walking standing using stairs, he has undergone conservative measures including previous viscosupplementation as well as multiple cortisone injections without much relief. He has tried oral anti-inflammatories and Tylenol as well, as well as participated in physical therapy and using a knee sleeve. X-rays were reviewed which show advanced generative changes to his right knee and after discussing further care like to proceed with left total knee arthroplasty Allergies Allergy/AdvReac Type Severity Reaction Status Date / Time grass pollen-perennial rye, Allergy Unknown HAY FEVER Verified 01/03/23 06:21 standar No Known Drug Allergies Allergy Unknown NKDA Verified 01/03/23 06:21 pollen extracts Allergy Unknown HAY FEVER Verified 01/03/23 06:21 Home Medications Medication Instructions Recorded Confirmed Type albuterol sulfate 90 mcg/actuation 1 inh inhalation QID PRN Wheezing 12/11/22 01/03/23 History aerosol inhaler allopurinol 100 mg tablet 100 mg PO BID 12/11/22 01/03/23 History ascorbate calcium (vitamin C) 500 500 mg PO DAILY 12/11/22 01/03/23 History mg tablet cetirizine 10 mg tablet 10 mg PO QAM 12/11/22 01/03/23 History cholecalciferol (vitamin D3) 125 125 mcg PO DAILY 12/11/22 01/03/23 History mcg (5,000 unit) tablet (Vitamin D3) choline 600 mg tablet 1,000 mg PO DAILY 12/11/22 01/03/23 History clopidogrel 75 mg tablet (Plavix) 75 mg PO QAM 12/11/22 01/03/23 History coenzyme Q10 200 mg capsule (Co 200 mg PO DAILY 12/11/22 01/03/23 History Q-10) cyanocobalamin (vitamin B-12) 100 100 mcg PO DAILY 12/11/22 01/03/23 History mcg tablet folic acid 400 mcg tablet 0.4 mg PO DAILY 12/11/22 01/03/23 History furosemide 20 mg tablet (Lasix) 20 mg PO DAILY PRN Edema 12/11/22 01/03/23 History hydroxychloroquine 200 mg tablet 200 mg PO BID 12/11/22 01/03/23 History (Plaquenil) inositol-choline bit-B cplx-C 1 cap PO DAILY 12/11/22 01/03/23 History capsule losartan 100 mg tablet 100 mg PO QAM 12/11/22 01/03/23 History melatonin 10 mg tablet 10 mg PO HS PRN Sleep 12/11/22 01/03/23 History metoprolol tartrate 25 mg tablet 25 mg PO BID 12/11/22 01/03/23 History pantoprazole 40 mg tablet,delayed 40 mg PO QAM 12/11/22 01/03/23 History release spironolactone 25 mg tablet 25 mg PO QAM 12/11/22 01/03/23 History zinc acetate 50 mg (zinc) capsule 50 mg PO DAILY 07/10/23 08/02/23 History docusate sodium 100 mg capsule 100 mg PO BID #20 caps 01/04/23 Rx oxycodone 5 mg tablet 5 - 10 mg (1 - 2 x 5 mg) PO Q6H 01/04/23 Rx PRN pain #30 tabs Past Med/Surg History Medical History Family history of diabetes mellitus Was on prophylactic Metformin- has since been d/c'ed Hgb A1C at [facility] appt 12/19/22 was 5.5 Hyperlipidemia Currently no meds GERD (gastroesophageal reflux disease) well controlled and stable with Protonix Prostate cancer 2009 > radiation and Lupron injections, no surgery Stroke 2011- ischemic stroke 06/18/2022 > reason for Loop recorder placement 11/2022 > no residual effects > following with [facility] for neuro Implantable loop recorder present placed November 2022 - due to Jun 2022 CVA Hypertension Asthma rare rescue inhaler use currently breathing well controlled and stable Sleep apnea no device Surgical History History of cardiac cath over 10 yrs ago History of arthroscopy left shoulder H/O hemorrhoidectomy History of colonoscopy History of tooth extraction History of cataract surgery bilat Hx of detached retina repair clips and pins present > bilat Family History Mother Diabetes Brother Diabetes Sister Diabetes Social History Smoking Status: Never smoker Second Hand Exposure: No; Do You Dip or Chew Tobacco: No; Hx Alcohol Use: Yes Alcohol type: wine and hard liquor Hx Substance Use: No Preferred Language: Georgian Communication Ability: Effective Clerk To Justice Required: No Beliefs That Will Affect Care: None Current Living Situation: Spouse Feels Safe at Home: Yes Assistive Devices: Walker Review of Systems Review of Systems: All systems reviewed & are unremarkable except as noted in HPI & below Constitutional: no fever, no chills and no sweats Respiratory: no cough and no dyspnea Cardiovascular: no chest pain, no dyspnea and no orthopnea Gastrointestinal: no abdominal pain, no nausea and no vomiting Musculoskeletal: as per Subjective / HPI Physical Exam Constitutional: WD/WN, vitals as above no acute distress Respiratory: normal respiratory effort, lungs clear to auscultation no respiratory distress, no labored breathing and does not use accessory muscles Cardiovascular: RRR, no murmur, no edema Gastrointestinal (Abdomen): normal bowel sounds, soft, nontender, no hepatosplenomegaly Musculoskeletal: Knee: + knee abnormal to inspection (LEFT KNEE), + effusion (+1 effusion), + limited ROM of knee (ROM 0/3/110), + knee ROM with crepitation, + joint line tenderness (medial joint line) and + Kenia's sign positive; no deformity, no skin erythema, no ecchymosis, no valgus laxity, no varus laxity, anterior drawer test negative, Siria's sign negative and pivot shift test negative Results & Data Results & Data Diagnostic Findings Left Knee X-ray: left knee series confirm degenerative changes to the left knee, greatest medial compartments and patellofemoral joint, showing joint space narrowing, osteophyte formation and subchondral sclerosis. no acute bony pathology noted.
--- NOTE | 2023-07-02 09:24 | PAT Medication Instructions ---
Medication Instructions Date of Service July 02, 2023 Home Medications albuterol sulfate 90 mcg/actuation aerosol inhaler 1 inh inhalation QID PRN allopurinol 100 mg tablet 100 mg PO BID cetirizine 10 mg tablet 10 mg PO QAM clopidogrel 75 mg tablet (Plavix) 75 mg PO QAM losartan 100 mg tablet 100 mg PO QAM metoprolol tartrate 25 mg tablet 25 mg PO BID pantoprazole 40 mg tablet,delayed release 40 mg PO QAM spironolactone 25 mg tablet 25 mg PO QAM zinc acetate 50 mg (zinc) capsule 50 mg PO DAILY Energy And Fat Metabolism 2 cap PO DAILY Liver Antioxident Extract 1 cap PO DAILY Pc Liver And Brain Supplement 2 cap PO DAILY cholecalciferol (vitamin D3) 25 mcg (1,000 unit) tablet (Vitamin D3) 25 mcg PO QAM colchicine 0.5 mg tablet 0.5 mg PO UD PRN cyanocobalamin (vitamin B-12) 250 mcg tablet 250 mcg PO QAM furosemide 20 mg tablet (Lasix) 20 mg PO DAILY PRN ASK your surgeon for instructions colchicine 0.5 mg tablet 0.5 mg PO UD PRN ASK your prescriber and surgeon clopidogrel 75 mg tablet (Plavix) 75 mg PO QAM(in order for spinal or epidural anesthesia, Plavix needs to be stopped 7 days before surgery. Please check if okay with doctor that prescribes this to you) STOP taking 2 weeks before surgery (or as soon as possible if surgery is within 2 weeks) Energy And Fat Metabolism 2 cap PO DAILY Liver Antioxident Extract 1 cap PO DAILY Pc Liver And Brain Supplement 2 cap PO DAILY DO NOT take the morning of surgery cetirizine 10 mg tablet 10 mg PO QAM losartan 100 mg tablet 100 mg PO QAM spironolactone 25 mg tablet 25 mg PO QAM zinc acetate 50 mg (zinc) capsule 50 mg PO DAILY cholecalciferol (vitamin D3) 25 mcg (1,000 unit) tablet (Vitamin D3) 25 mcg PO QAM cyanocobalamin (vitamin B-12) 250 mcg tablet 250 mcg PO QAM furosemide 20 mg tablet (Lasix) 20 mg PO DAILY PRN Take morning of surgery With a small sip of water, OTHERWISE NOTHING TO EAT OR DRINK AFTER MIDNIGHT: albuterol sulfate 90 mcg/actuation aerosol inhaler 1 inh inhalation QID PRN(use if needed; please bring with you to hospital day of surgery if possible) allopurinol 100 mg tablet 100 mg PO BID metoprolol tartrate 25 mg tablet 25 mg PO BID pantoprazole 40 mg tablet,delayed release 40 mg PO QAM Take evening before surgery albuterol sulfate 90 mcg/actuation aerosol inhaler 1 inh inhalation QID PRN(if needed) allopurinol 100 mg tablet 100 mg PO BID metoprolol tartrate 25 mg tablet 25 mg PO BID Other Notes If you have any questions please call us at [phone] or [phone] or [phone] or [phone]
--- NOTE | 2023-07-05 13:08 | Anesthesiology Consultation ---
Date of Service July 05, 2023 Assessment & Plan (1) Encounter for pre-operative examination: Chart Review Chart Review: Acceptable Risk for Surgery (pending most recent ECHO (if available) and PCP clearance ) and Patient seen in Pre Admission Testing - Awaiting ECHO 08/2022 ([facility] cardio- noted in most recent office visit) - [facility] please send preop testing for review - Due to comorbidities- patient is NOT an ideal OPJ candidate Per PAT appt on 07/05/23, no recent illness/disease exposures, illness related symptoms, or recent illness/disease positive tests. Will leave to surgeon's discretion if preop Covid testing needed Patient seen by cardio 07/04/23= seen for preop evaluation. Patient hospitalized previously for stroke. Did receive TNK. Follow-up Holter monitor did not indicate any dysrhythmias. Loop recorder implantation was recommendedthis was performed 11/28/2022. Her loop recorder readings1 tachycardia episode, lasted less than 6 seconds on 06/07/2023. Questionable atrial fibrillation with RVR versus SVT. EKG from today reviewedindicates sinus rhythm with heart rate of 83 bpm. Patient presents for cardiac evaluation prior to intermediate cardiovascular risk surgery. No active cardiovascular conditions in the past 30 days. Cardiac risk factors include hypertension and hyperlipidemia. Patient previously has been noted to have small pericardial effusion echocardiogrammost recent echocardiogram from 08/17/2022 did not indicate this. Patient does have loop recorder placed post CVA. CVA symptoms occurred in Jun 2022. Patient on Plavix. Functional capacity standpoint, he is able to perform about 4 METS. Plavix may be held 5 to 7 days prior to surgery. Resume soon as possible postoperatively. Patient is currently on Plavix for neurological reason and not cardiac reason. Continue beta-rufino. Would recommend restarting statinwill defer to PCP. Based on history, physical exam and above information, patient does not require further invasive or noninvasive cardiovascular testing or procedures prior to proceeding with planned surgery. Patient would be considered low to intermediate cardiovascular risk candidate. He is currently optimized from a cardiac standpoint to proceed with planned surgery recommend close hemodynamic monitoring throughout the perioperative.. Follow-up in 1 year. Right Total Knee Arthroplasty 01/03/23= Done under SAB at L3-4 with 1 attempt Teaching & Discussion Pre-Anesthesia Teaching/Discussion Notes: Instructed NPO after midnight before surgery,except medications with 15 cc of water. Medication instructions provided according to the PAT guidelines. History Surgery Operation Date: 07/17/23 08:15 Proposed Procedures p Left Total Knee Arthroplasty - Reginald Kauffman DO Height/Weight Height: 5 ft 9.5 in Weight: 109.1 kg Allergies Allergy/AdvReac Type Severity Reaction Status Date / Time grass pollen-perennial rye, Allergy Mild HAY FEVER Verified 06/29/23 09:31 standar pollen extracts Allergy Mild HAY FEVER Verified 06/29/23 09:31 No Known Drug Allergies Allergy Unknown NKDA Verified 06/29/23 09:31 Medications Home Medications Medication Instructions Recorded Confirmed Last Taken albuterol sulfate 90 mcg/actuation 1 inh inhalation QID PRN Wheezing 12/11/22 06/29/23 Unknown aerosol inhaler allopurinol 100 mg tablet 100 mg PO BID 12/11/22 06/29/23 01/03/23 05:30 cetirizine 10 mg tablet 10 mg PO QAM 12/11/22 06/29/23 1 Week Ago ~12/27/22 clopidogrel 75 mg tablet (Plavix) 75 mg PO QAM 12/11/22 06/29/23 2 Weeks Ago ~12/20/22 losartan 100 mg tablet 100 mg PO QAM 12/11/22 06/29/23 01/02/23 08:00 metoprolol tartrate 25 mg tablet 25 mg PO BID 12/11/22 06/29/23 01/03/23 05:30 pantoprazole 40 mg tablet,delayed 40 mg PO QAM 12/11/22 06/29/23 01/03/23 05:30 release spironolactone 25 mg tablet 25 mg PO QAM 12/11/22 06/29/23 1 Week Ago ~12/27/22 zinc acetate 50 mg (zinc) capsule 50 mg PO DAILY 12/11/22 06/29/23 2 Weeks Ago ~12/20/22 Energy And Fat Metabolism 2 cap PO DAILY 06/29/23 06/29/23 Unknown Liver Antioxident Extract 1 cap PO DAILY 06/29/23 06/29/23 Unknown Pc Liver And Brain Supplement 2 cap PO DAILY 06/29/23 06/29/23 Unknown cholecalciferol (vitamin D3) 25 25 mcg PO QAM 06/29/23 06/29/23 Unknown mcg (1,000 unit) tablet (Vitamin D3) colchicine 0.5 mg tablet 0.5 mg PO UD PRN gout attack 06/29/23 06/29/23 Unknown cyanocobalamin (vitamin B-12) 250 250 mcg PO QAM 06/29/23 06/29/23 Unknown mcg tablet furosemide 20 mg tablet (Lasix) 20 mg PO DAILY PRN leg edema 06/29/23 06/29/23 Unknown Past Medical History Medical History Asthma has been using rescue more frequent since covid + 05/24/23 breathing significantly improved as of PAT appt 07/05/23 (mild residual post nasal drip) Foreign body, eye 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 GERD (gastroesophageal reflux disease) well controlled and stable) History of COVID-19 05/24/23>tested + @ [facility]/> symptoms improved with exception to mild residual post nasal drip History of prostate cancer 2009 > radiation and Lupron injections, no surgery Hyperlipidemia no meds Hypertension Implantable loop recorder present placed November 2022 - due to Jun 2022 CVA Sleep apnea no device Stroke 2011- ischemic stroke 06/18/2022 > reason for Loop recorder placement 11/2022 > no residual effects > following with [facility] for neuro>no residual symptoms> reason for Plavix Exercise / Class Metabolic Activity III < 4 Walking/Shop/Light housework (one flight of stairs - no chest pain, mild SOB due to deconditioning per patient ) Past Family History Family History Mother Diabetes Brother Diabetes Sister Diabetes Other No family history of adverse response to anesthesia Past Surgical History Surgical History H/O hemorrhoidectomy History of arthroscopy left shoulder History of cardiac cath over 10 yrs ago>no stents History of cataract surgery rt/left History of colonoscopy History of tooth extraction History of total knee replacement right Hx of detached retina repair clips and pins present > bilat Past Anesthesia History No Hx of Anesthesia Complications and No Family Hx of Anesthesia Complications History of PONV No Hx of PONV and No Hx of Motion Sickness Social History Smoking Status: Never smoker Do You Dip or Chew Tobacco: No Hx Alcohol Use: Yes Alcohol type: wine and hard liquor alcohol intake frequency: a few times a month substance use type: does not use Review of Systems Patient denies chest pain, shortness of breath at rest, cough, wheezing. No hx of seizures, [place]. No hx of blood clots or blood transfusions Physical Exam Vital Signs VITALS BP 116/56 (manually) P 82 TEMP SP02 96% RESP 16 Constitutional no acute distress ENMT Mouth: no TMJ clicking Thyromental Distance: > or= 3.5 Finger Breadths (3.5) Mallampati Class: III Top front teeth capped Permanent bridge on side teeth Neck + limited neck extension (mild) Respiratory normal respiratory effort; no respiratory distress Auscultation: lungs clear to auscultation bilaterally; no wheezes Cardiovascular Rate/Rhythm: regular rate and regular rhythm Heart Sounds: no murmur Vessels: no carotid bruit Musculoskeletal Spine: + pain with cervical ROM (mild pulling ) Extremities: extremities normal to inspection Psychiatric Orientation: alert Lab Results Anesthesia Preop Results Results Anesthesia Widget: WBC 4.95 K/ul (4.8-10.8) 07/05/23 Hgb 14.3 g/dl (14.0-18.0) 07/05/23 Hct 41.2 % (42.0-52.0) L 07/05/23 Plt 236 K/uL (130-400) 07/05/23 Na 135 mmol/L (136-145) L 07/05/23 K 4.3 mmol/L (3.5-5.1) 07/05/23 Cl 102 mmol/L (98-107) 07/05/23 CO2 27 mmol/L (21-32) 07/05/23 BUN 20 mg/dl (6-23) 07/05/23 Creat 1.18 mg/dl (0.6-1.4) 07/05/23 Glucose Level 106 mg/dl (70-99(Fasting)) H 07/05/23 PT 10.4 Seconds (9.0-12.0) 07/05/23 PTT 26 Seconds (21-31) 07/05/23 INR 0.9 (0.9-1.1) 07/05/23 HA1c 5.7 % (4.5-5.6) H 07/05/23 Urine Color Yellow 07/05/23 Urine Appearance Clear (Clear) 07/05/23 Urine pH 5.5 (4.5-7.5) 07/05/23 Urine Specific [place] 1.011 (1.000-1.030) 07/05/23 Urine Protein Negative (Negative) 07/05/23 Urine Glucose (UA) Negative (Negative) 07/05/23 Urine Ketones Negative (Negative) 07/05/23 Urine Blood Negative (Negative) 07/05/23 Urine Nitrite Negative (Negative) 07/05/23 Urine Bilirubin Negative (Negative) 07/05/23 Urine Urobilinogen Negative (Negative) 07/05/23 Urine Leukocyte Esterase Negative (Negative) 07/05/23 Blood Type O Negative 07/05/23 Antibody Screen NEGATIVE 07/05/23 Testing Electrocardiogram Date: 07/04/23 Sinus rhythm at 83bpm Within normal limits per cardio Chest X-Ray Date: 05/31/23 No acute pulmonary pathology. Metallic structure within the 17th soft tissues of the left chest (Per patient- has loop recorder in place) Echocardiogram Date: 06/19/22 LV cavity size is normal. Wall thickness is normal. Systolic function is hyperdynamic. Estimated EF is 65-70%. Wall motion is normal. There are no regional wall motion abnormalities. RV cavity size is dilated. Systolic function is reduced. RVSP is 23 mmHg. No obvious patent foramen ovale evident by negative bubble study. Stress Test Date: 03/08/22 Lexiscan Cardiolite myocardial perfusion imaging is negative for myocardial ischemia and/or prior infarction Normal LV systolic function, EF >65% No transient ischemic dilation EKG during Lexiscan negative for ischemia Other Testing CT of the head 06/19/2022 = no acute intracranial process. No significant change from June 18, 2022. Given ongoing concern for acute ischemic event, recommend follow-up brain around with diffuse wait imaging CT of the head 06/18/22= no intracranial hemorrhage or mass effect. No CT evidence for acute infarct at this time. If there are persistent clinical symptoms or additional clinical concerns consider follow-up with MRI which is more sensitive for early changes associated with acute infarcts. Chronic small vessel ischemic disease changes and volume loss. Head CTA 06/18/2022 = mild stenosis of bilateral carotid siphons. Diminutive vertebrobasilar system with origin of both posterior cerebral arteries. No large vessel occlusion is detected. Neck CTA 06/18/2022 = no large vessel occlusion or focal hemodynamically significant stenosis. 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
[~2023-07-17 07:54] MED LIST changes: -ACETAMINOPHEN 500 MG TAB PO SCH; +BUPIVACAINE 0.5 % 5 MG/1 ML PF 10ML VIAL ONE; -CeleBREX 200 MG CAP PO SCH; -FAMOTIDINE 20 MG TAB PO SCH; -LR 500ML BOLUS, THEN 15ML/HR IV SCH; -LR 60ML/HR IV SCH; -METOCLOPRAMIDE HCL 10 MG TABLET PO SCH; +ROPIVACAINE 0.5% 5 MG/ML 30 ML VIAL ONE; -ROPIVACAINE 0.5% HCL/PF 150 MG, BUPIVACAINE 0.75% MPF 20 ML, EPINEPHrine 30MG/30ML (OR ... INSTIL SCH; -ceFAZolin 2000MG 2,000 MG/15 ML SYR IV SCH; -dexAMETHasone 4 MG TAB PO SCH; +dexAMETHasone**PF** 10 MG/ML VIAL IV SCH
--- NOTE | 2023-07-17 08:29 | History & Physical Bridge Note ---
Date of Service July 17, 2023 History & Physical Bridge Note I have examined the patient, reviewed the History & Physical and in the interval since the performance of the History & Physical I have noted the following changes of clinical significance: no changes noted
[2023-07-17] MEDS ORDERED: MIDAZOLAM HCL 1 MG/ML 2ML VIAL ONE (08:32)
[2023-07-17] MEDS ORDERED: fentaNYL citrate PF 100 MCG/2 ML VIAL ONE (08:32)
[2023-07-17] MEDS: LR 500ML BOLUS, THEN 15ML/HR IV SCH (08:42)
[2023-07-17] MEDS: LR 60ML/HR IV SCH (08:42)
[2023-07-17] MEDS: ACETAMINOPHEN 500 MG TAB PO SCH ×2 (08:42→14:21)
[2023-07-17] MEDS: GABAPENTIN 300 MG CAP PO SCH (08:43)
[2023-07-17] MEDS: FAMOTIDINE 20 MG TAB PO SCH (08:43)
[2023-07-17] MEDS: CeleBREX 200 MG CAP PO SCH (08:43)
[2023-07-17] MEDS: METOCLOPRAMIDE HCL 10 MG TABLET PO SCH (08:43)
[2023-07-17] MEDS ORDERED: ePHEDrine sulfate 50 MG/ML AMP IV PRN (08:53)
[2023-07-17] MEDS ORDERED: ATROPINE SULFATE 0.1 MG/ML 10ML SYR IV PRN (08:53)
[2023-07-17] MEDS ORDERED: ONDANSETRON INJ 2 MG/ML 2 ML VIAL IV PRN ×2 (08:53→13:41)
[2023-07-17] MEDS ORDERED: PROMETHAZINE HCL 6.25 MG in SODIUM CHLORIDE 0.9% 50 ML IV PRN (08:53)
[2023-07-17] MEDS: ceFAZolin 2000MG 2,000 MG/15 ML SYR IV SCH ×2 (09:47→15:44)
[2023-07-17] MEDS: ROPIV 0.5% 246mg, Ketorolac 30mg, EPINEPHrine 0.5mg in NSS INFIL SCH (10:48)
[2023-07-17] MEDS ORDERED: PROPOFOL IV EMULSION 10 MG/ML 20 ML VIAL IV ONE ×2 (10:54→11:18)
[2023-07-17] MEDS ORDERED: LIDOCAINE 2% 2 ML VIAL/AMP(20MG/ML) INFIL ONE (10:55)
--- NOTE | 2023-07-17 10:56 | Operative Report ---
Post Operative Report Pre & Post Diagnosis Operation Date: 07/17/23 09:15 Pre-Op Diagnosis: Left Knee Osteoarthritis Post-Op Diagnosis: Left Knee Osteoarthritis I identified the patient and participated in the time-out.: Yes Procedure Operation Date: 07/17/23 09:15 Actual Procedures p Left Total Knee Arthroplasty(Left)Utilizing [employer] journey 2 and en bloc total knee arthroplasty size 6 femur 6 tibia 10 poly 32 oval patella - Reginald Kauffman DO Surgeon Reginald Kauffman DO Bunch Maker Andrés MAXWELL Estimated Blood Loss 5 Findings Consistent with Post-Op Diagnosis Patient presents with severe end-stage tricompartmental DJD varus alignment subchondral sclerosis marginal osteophytes moderate to large effusion eburnated [id number] Specimens Bone and cartilage Drains Medium bore Hemovac Anesthesia Type MAC Spinal Regional Complications none Disposition Accompanied Patient To Recovery: No Disposition: Recovery Room Indications Patient presents with severe end-stage tricompartmental DJD failed attempted conservative management getting physical therapy anti-inflammatories relative rest activity modification corticosteroid injection viscosupplementation Description of Procedure After proper prepping and draping of the Right lower extremity anterior midline incision was made over the region of the extensor extensor mechanism after meticulous hemostasis was obtained and maintained in subcutaneous tissues a medial parapatellar incision was made The patella was subluxed lateralward the medial lateral gutter were cleaned from any hypertrophic synovitis and scar tissue of the distal femoral block was placed and the distal femoral osteotomy cut was made subsequently the chamfers anterior and posterior osteotomy cuts were made utilizing the 4-in-1 block the tibia was subsequently subluxed anteriorward medial and ateral meniscal remnants were excised in their entirety remnants of the anterior and posterior cruciate ligaments were excised in their entirety excellent exposure of the proximal tibia was obtained the tibial osteotomy guide was placed on the proximal tibial osteotomy cut was made once again the knee was irrigated with copious amounts of sterile saline solution the patella was subsequently everted lateralward thickened scar tissue around the patella was removed the patella was subsequently cut utilizing a freehand technique and was drilled prepared for final preparation and placement of patella socially flexion-extension gaps were checked and the equal and symmetric trials were placed to the appropriate femoral and tibial trials with poly-spacer being placed for equal flexion and extension gaps and full range of motion including extension to 0 and flexion to 140 the trial components after having been taken to recovery range of motion was subsequently removed meticulous hemostasis was obtained and maintained subsequently a knee block injection of joint cocktail including ropivacaine 0.5% 150 mg. Bupivacaine 0.5% epinephrine 1-200,030 mL's toradol 30 mg dexamethasone 4 mg ketamine 10 mg clonidine 100 micrograms normal saline solution 30 mg was infiltrated into the soft tissues of the posterior knee medial lateral gutters and periosteal synovium special attention was paid to protect neurovascular structures at all times subsequently trial components having been removed the knee was irrigated with sterile saline solution. debris was removed the proximal tibia was subsequently prepared and was made ready for the placement of the tibial component tibial component was also cemented and tamped into position the femoral component was subsequently placed and cemented in the position the patellar component was subsequently ce mented in position because hemostasis once again obtained and maintained wound having been thoroughly irrigated with debridement and debridement lavage was performed as well as a medial parapatellar incision closed with #1 Vicryl in interrupted fashion subcutaneous was closed with #2 Vicryl skin was closed with skin clips. PA-C was necessary for prepping and drapping as well as wound closure of deep fascia Sub cutaneous tissue and skin and was necessary for the case. A sterile compressive dressing was placed patient was taken to recovery in stable condition of report dictated by Jamari I attest to the content of the Intraoperative Record and any orders documented therein. Any exceptions are noted below.Due to the complex nature of the procedure, the entire surgery was performed with the operational assistance of HANS Hoskins. The environmental services assistant, under direct supervision, was involved in the actual performance of all aspects of the surgical procedure including hemostasis, tissue retraction and incision, instrument management, patient positioning, and wound closure. I attest to the content of the Intraoperative Record and any orders documented therein. Any exceptions are noted below.
[2023-07-17] MEDS ORDERED: ePHEDrine sulfate 50 MG/5 ML SYR ONE (11:26)
[2023-07-17] MEDS ORDERED: ONDANSETRON INJ 2 MG/ML 2 ML VIAL ONE (11:26)
[2023-07-17] MEDS: fentaNYL citrate PF 100 MCG/2 ML VIAL IV PRN (11:52)
[2023-07-17] MEDS: HYDROmorphone INJ 2 MG/ML SYR/VIAL IV PRN (11:58)
--- NOTE | 2023-07-17 12:07 | XRay Report ---
TWO VIEWS LEFT KNEE CLINICAL HISTORY: Postoperative examination. FINDINGS: AP and crosstable lateral portable views of the left knee are obtained. A left knee arthrop lasty is in near anatomic alignment. There has been undersurface remodeling of the patella. No acute fracture is seen. There are expected postoperative changes around the knee including a surgical drain , soft tissue edema, and subcutaneous gas. IMPRESSION: Expected postoperative changes status post left knee arthroplasty. No acute fracture is s een. ACT 112: Negative or not required by law. Electronically signed by: David Lynne M.D. 07/17/2023 12:06 PM
--- NOTE | 2023-07-17 12:50 | Anesthesiology Progress Note ---
Date of Service July 17, 2023 Anesthesia Post Procedure Vital Signs Vital Signs: Temp Pulse Pulse Resp BP Pulse Ox O2 Del Method 07/17/23 12:40 89 17 150/72 H 97 Nasal Cannula 07/17/23 12:30 86 12 146/75 H 95 Nasal Cannula 07/17/23 12:20 36.4 C L 86 12 150/71 H 94 Nasal Cannula 07/17/23 12:10 82 18 144/70 H 97 Nasal Cannula 07/17/23 12:00 85 12 150/67 H 94 Nasal Cannula 07/17/23 11:50 83 16 130/74 96 Room Air 07/17/23 11:40 87 18 134/70 99 Oxymask 07/17/23 11:30 36.0 C L 86 16 136/66 99 Oxymask 07/17/23 08:16 36.6 C 73 20 141/86 H 94 Room Air O2 Flow Rate 07/17/23 12:40 2 07/17/23 12:30 2 07/17/23 12:20 2 07/17/23 12:10 2 07/17/23 12:00 2 07/17/23 11:50 07/17/23 11:40 4 07/17/23 11:30 6 07/17/23 08:16 Pain Intensity Left Knee: Pain Intensity: 3 Transfer of Care Handoff Completed per policy Notes Mental Status: alert / awake / arousable and participated in evaluation Nausea / Vomiting: adequately controlled Pain: adequately controlled Airway Patency, RR, SpO2: stable & adequate BP & HR: stable & adequate Hydration State: stable & adequate Neuraxial Anesthesia: was administered and sensory block is resolving Anesthetic Complications: no major complications apparent and Pt Satisfied with anesthetic care
[2023-07-17] MEDS ORDERED: ALBUTEROL HFA 8 GM INHALER INH PRN (13:41)
[2023-07-17] MEDS ORDERED: diphenhydrAMINE Capsule 25 MG CAP PO PRN (13:41)
[2023-07-17] MEDS ORDERED: HYDROmorphone INJ 1 MG/ML SYRINGE IV PRN (13:41)
[2023-07-17] MEDS ORDERED: NALOXONE HCL 0.4 MG/1 ML VIAL/CARP IV PRN (13:41)
[2023-07-17] MEDS ORDERED: bisacodyL 10 MG SUPP PR PRN (13:41)
[2023-07-17] MEDS ORDERED: METOCLOPRAMIDE HCL INJ 5 MG/ML 2 ML VIAL IV PRN (13:41)
[2023-07-17] MEDS ORDERED: MAGNESIUM HYDROXIDE SUSP 30 ML UDC PO PRN (13:41)
[2023-07-17] MEDS: ORTHO JOINT ANESTHETIC ONE (14:09)
[2023-07-17] MEDS: SODIUM CHLORIDE 0.9% 1,000 ML IV SCH (14:21)
[2023-07-17] MEDS: oxyCODONE HCL IR 5 MG TAB (IMMEDIATE RELEASE) PO PRN (15:43)
[2023-07-17] MEDS: METOPROLOL TARTRATE 25 MG TAB PO SCH (20:10)
[2023-07-17] MEDS: allopurinoL 100 MG TAB PO SCH (20:10)
[2023-07-17] MEDS: ASPIRIN 81 MG ECTAB PO SCH (20:10)
[2023-07-17] MEDS: DOCUSATE SODIUM 100 MG CAP PO SCH (20:10)
[2023-07-17] MEDS: SENNA 8.6 MG TAB PO SCH (20:10)
[2023-07-18 06:35] LABS: Hematocrit (blood only) 32.8 % (42.0-52.0); Hemoglobin 10.9 g/dl (14.0-18.0); Mean Corpuscular Hgb Conc 33.2 g/dL (32.0-36.0); Mean Corpuscular Volume 93.2 fL (80.0-100.0); Mean Platelet Volume 9.7 fL (9.4-12.4); Platelet Count 183 K/uL (130-400); RDW Coefficient of Variation 14.5 % (11.5-14.5); RDW Standard Deviation 48.5 fL (36.4-46.3); Red Blood Count 3.52 M/uL (4.70-6.10); White Blood Count 6.29 K/ul (4.8-10.8)
--- NOTE | 2023-07-18 06:52 | Orthopedic Progress Note ---
Date of Service July 18, 2023 Assessment & Plan (1) History of total left knee replacement: Plan: POD #1 s/p Left TKA pt/ot dvt proph with NANCY/SCD/ASA and Plavix plan for d/c home with HHPT Admission and Anticipated Discharge Date Admission Date: July 17, 2023 Subjective POD #1 s/p Left TKA Review of Systems Constitutional: no fever, no chills and no sweats Respiratory: no cough and no dyspnea Cardiovascular: no chest pain and no dyspnea Gastrointestinal: no abdominal pain, no nausea and no vomiting Physical Exam Physical Exam: Vital Signs Temp 36.3 C L 07/18/23 02:52 Pulse 85 07/18/23 02:52 Resp 16 07/18/23 02:52 BP 128/75 07/18/23 02:52 Pulse Ox 96 07/18/23 02:52 O2 Del Method Room Air 07/18/23 02:52 O2 Flow Rate 2 07/17/23 13:20 Intake & Output 07/17/23 07/17/23 07/18/23 06:59 18:59 06:59 Intake Total 2140 / 4286.667 2146.667 / 4286.66 7 Output Total 685 / 2035 1350 / 2035 Balance 1455 / 2251.667 796.667 / 2251.667 Weight 107.4 kg Intake: IV 0 / 4049.113 2122.667 / 1946.66 7 Lactated Ringe r's 1,000 ml @ 15 0 / 0 mls/hr IV .Q24 H DELVIN Rx#: [id number] Sodium Chlorid e 0.9% 1,000 ml @ 1946.667 / 1946.66 7 100 mls/hr IV .Q10H DELVIN Rx#: [id number] IV Perioperative 1750 / 1750 Oral 300 / 500 200 / 500 Other 90 / 90 Output: Urine 950 / 950 Estimated Blood Loss 5 / 5 Drain Output 680 / 1080 400 / 1080 Left Knee Hemo vac 680 / 1080 400 / 1080 Other: Other Intake Jennifer rce OR IV fluid Weight Measureme nt Method Standing Scale Musculoskeletal: Left Leg: NVDI, calf SNT, negative phillip sign. DP palpable, able to wiggle toes/ankle movement without difficulty. dressing clean dry and intact. Results & Data Vital Signs (Past 12 Hours) Vital Signs Temp Pulse Resp BP Pulse Ox O2 Del Method 07/18/23 02:52 36.3 C L 85 16 128/75 96 Room Air 07/17/23 22:51 36.3 C L 90 18 116/73 97 Room Air 07/17/23 19:34 36.3 C L 97 H 18 152/72 H 97 Room Air Laboratory Results Laboratory Results WBC 6.29 K/ul (4.8-10.8) 07/18/23 05:52 RBC 3.52 M/uL (4.70-6.10) L 07/18/23 05:52 Hgb 10.9 g/dl (14.0-18.0) L 07/18/23 05:52 Hct 32.8 % (42.0-52.0) L 07/18/23 05:52 MCV 93.2 fL (80.0-100.0) 07/18/23 05:52 MCH 31.0 pg (25.0-34.0) 07/18/23 05:52 MCHC 33.2 g/dL (32.0-36.0) 07/18/23 05:52 RDW Std Deviation 48.5 fL (36.4-46.3) H 07/18/23 05:52 RDW Coeff of Lizz 14.5 % (11.5-14.5) 07/18/23 05:52 Plt Count 183 K/uL (130-400) 07/18/23 05:52 MPV 9.7 fL (9.4-12.4) 07/18/23 05:52 Impressions Knee X-Ray 07/17/23 10:15 TWO VIEWS LEFT KNEE CLINICAL HISTORY: Postoperative examination. FINDINGS: AP and crosstable lateral portable views of the left knee are obtained. A left knee arthroplasty is in near anatomic alignment. There has been undersurface remodeling of the patella. No acute fracture is seen. There are expected postoperative changes around the knee including a surgical drain, soft tissue edema, and subcutaneous gas. IMPRESSION: Expected postoperative changes status post left knee arthroplasty. No acute fracture is seen. ACT 112: Negative or not required by law. Electronically signed by: David Lynne M.D. 07/17/2023 12:06 PM
[2023-07-18 07:01] LABS: Calcium 8.1 mg/dl (8.6-10.3); Potassium 4.1 mmol/L (3.5-5.1)
--- NOTE | 2023-07-18 07:01 | Discharge Summary ---
Date of Service date of surgery: July 18, 2023 date of admission: 07/17/23 Admission HPI Per Admitting Provider Diego Is a pleasant 77-year-old male presented for preop evaluation prior to his left total knee replacement. He states that his pain in that knee is ongoing and gradually worsened and is now affecting his daily activities including walking standing using stairs, he has undergone conservative measures including previous viscosupplementation as well as multiple cortisone injections without much relief. He has tried oral anti-inflammatories and Tylenol as well, as well as participated in physical therapy and using a knee sleeve. X-rays were reviewed which show advanced generative changes to his right knee and after discussing further care like to proceed with left total knee arthroplasty Principal Diagnosis left knee arthritis Discharge Exam Vital Signs Temp 36.3 C L 07/18/23 02:52 Pulse 85 07/18/23 02:52 Resp 16 07/18/23 02:52 BP 128/75 07/18/23 02:52 Pulse Ox 96 07/18/23 02:52 O2 Del Method Room Air 07/18/23 02:52 O2 Flow Rate 2 07/17/23 13:20 Intake & Output 07/17/23 07/18/23 07/18/23 18:59 06:59 18:59 Intake Total 2140 / 4286.667 2146.667 / 4286.667 Output Total 685 / 2035 1350 / 2035 Balance 1455 / 2251.667 796.667 / 2251.667 Weight 107.4 kg Intake: IV 0 / 1807.332 8771.667 / 1946.667 Lactated Ringer's 1,000 ml @ 15 0 / 0 mls/hr IV .Q24H DELVIN Rx#: [id number] Sodium Chloride 0.9% 1,000 ml @ 1946.667 / 1946.667 100 mls/hr IV .Q10H DELVIN Rx#: [id number] IV Perioperative 1750 / 1750 Oral 300 / 500 200 / 500 Other 90 / 90 Output: Urine 950 / 950 Estimated Blood Loss 5 / 5 Drain Output 680 / 1080 400 / 1080 Left Knee Hemovac 680 / 1080 400 / 1080 Other: Other Intake Source OR IV fluid Weight Measurement Method Standing Scale Musculoskeletal left knee: NVDI, calf SNT, negative phillip sign. DP palpable, able to wiggle toes/ankle movement without difficulty. dressing clean dry and intact. Discharge Data Allergies Allergy/AdvReac Type Severity Reaction Status Date / Time grass pollen-perennial rye, Allergy Mild HAY FEVER Verified 07/17/23 08:21 standar pollen extracts Allergy Mild HAY FEVER Verified 07/17/23 08:21 No Known Drug Allergies Allergy Unknown NKDA Verified 07/17/23 08:21 Procedures Performed Operation Date: 07/17/23 09:15 Actual Procedures p Left Total Knee Arthroplasty(Left) - Reginald Davies DO Ordered Studies 07/17/23 05:00 US - OR guided needle placemen Routine Hospital Course (1) History of total left knee replacement: POD #1 s/p Left TKA pt/ot dvt proph with NANCY/SCD/ASA and Plavix plan for d/c home with HHPT Total Time Total Time Spent Total Time Spent (In Minutes): 20 Discharge Plan Discharge Items Patient Disposition: Home - Home Health Services Reason For Visit: Left Knee Osteoarthritis Discharge Diagnosis: left total knee replacement Activity: Per Instructions section Weightbearing Comment: WBAT with walker Non-emergency contact: Surgeon Call non-emergency contact if: you have any medication questions, your temperature is above 101, your wound has increased redness, your wound has increased drainage and your wound pain has increased Follow-up/Referrals: Allan Araujo CRNP [Primary Care Provider] - Diet: Regular Addtl Attending Provider Instructions: ACTIVITY RECOMMENDATIONS: SELF CARE INSTRUCTIONS AFTER TOTAL KNEE REPLACEMENT A. You may need to continue a physical therapy program after discharge from the hospital. There are several options available to you. Your doctor will assist you in selecting the best one for you. 1. An out-patient facility 2 to 3 times a week for therapy or home therapy. 2. Continue working on all exercises taught to you in the hospital. Your goals should be to increase bending of your knee to 90 degrees and beyond and to fully straighten your knee. B. You may progress at your own pace from walking with a walker or crutches to a cane; then to no assistive devices. C. Make walking a part of your daily routine. Be up as much as comfortable with rest periods throughout the day. Rest with leg elevation is very important. Use the ice wrap frequently for the first 3-4 weeks. D. There are no restrictions on activities. You may ride in a car, shop, participate in obstetrics nurse and all social activities. E. Wear the long elastic stockings (NANCY hose) 20 hours a day for 2 weeks after surgery. They can be removed several times a day for laundering and for a bath. F. You may shower, no tub baths until cleared by your doctor. SPECIAL CARE INSTRUCTIONS: VERY IMPORTANT TO READ AND REVIEW A. There are a few signs you need to watch for after you are home. Call [facility] if you notice any of the followin. Increased severe knee pain. Some pain is expected especially when you exercise. 2. Increased swelling in your leg or knee; pain or swelling of the calf muscle in either lower leg. 3. Any fluid drainage from the incision. 4. Shortness of breath or chest pain. B. Please call [facility] at if you have any concerns or questions about your operation or recovery. The doctor or his nurse will return your call promptly. C. You must take antibiotics before dental work, bladder, bowel or other surgery. Your doctor will provide you with a permanent care to carry describing this precaution. IMPORTANT: * REMEMBER TO TAKE ASPIRIN, 81 MG, TWICE DAILY FOR 4 WEEKS UNLESS OTHERWISE DIRECTED. THIS IS YOUR BLOOD THINNER. * HIGH RISK PATIENTS MAY BE PRESCRIBED A STRONGER BLOOD THINNER. THIS WILL BE PROVIDED AT DISCHARGE. * CALL IF INCREASED PAIN, REDNESS, DRAINAGE OR FEVER GREATER THAT 101. * WEAR NANCY HOSE 20 HOURS PER DAY FOR 2 WEEKS. DRESSING INSTRUCTIONS * DMITRY Dressing- This is a large suction dressing covering your incision. This will help pull any excess drainage from the wound and allow your incision to heal properly. You may shower with this if you can keep the unit outside of the shower. If any bleeding or leakage is noted please call your doctor's office. This will remain on your incision for 7 days and then should be rem bonnie. This can be done yourself or by the home nursing staff if applicable. The entire unit is disposable once removed. Once removed, keep incision clean and dry. If redness or drainage is noted, please call your surgeon. ONCE DMITRY IS REMOVED, FOLLOW THESE INSTRUCTIONS: DERMABOND Prineo- This is a mesh tape dressing that is covered with glue. It should remain in place until the incision is properly healed, usually 10-14 days. This dressing is designed to naturally slough off. You may trim the excess mesh tape as it peels off. Incision may be briefly wet in a shower. Dry immediately by blotting with a clean, dry towel. Do not bath or swim until instructed by your doctor. Do not scratch, rub, or pick at the dressing. Do not apply any topical ointments or lotions until dressing is completely removed and/or instructed by your doctor. There may be a small piece of suture material at one end of your incision. Do not pull or trim this. If it is bothersome or catching on clothing, you may cover it with a band-aid. IF INCISION IS LEAKING THROUGH DRESSING, CALL THE OFFICE . FOLLOW UP VISIT: If appointment is not already scheduled: Please call [facility] [place] to make a follow-up appointment for 2 weeks after your surgery at . Stand-Alone Forms: My [facility] Medications and DC Order Prescriptions: New acetaminophen 500 mg tablet 1,000 mg PO Q8 21 Days Qty: 126 0RF aspirin 81 mg tablet,delayed release (DR/EC) 81 mg PO DAILY 30 Days Qty: 30 0RF cefadroxil 500 mg capsule 500 mg PO BID 14 Days Qty: 28 0RF docusate sodium 100 mg Capsule 100 mg PO BID Qty: 20 0RF oxycodone 5 mg tablet 5 - 10 mg PO Q6H PRN (Reason: pain) Qty: 30 0RF Rx Instructions: ongoing therapy, supervising dr bora davies. max 6 tabs in 24 hours. surgery 07/17/23 Continued cyanocobalamin (vitamin B-12) 250 mcg Tablet 250 mcg PO QAM Energy And Fat Metabolism 2 cap PO DAILY Liver Antioxident Extract 1 cap PO DAILY Pc Liver And Brain Supplement 2 cap PO DAILY cholecalciferol (vitamin D3) [Vitamin D3] 25 mcg (1,000 unit) Tablet 25 mcg PO QAM furosemide [Lasix] 20 mg Tablet 20 mg PO DAILY PRN (Reason: leg edema) colchicine 0.5 mg Tablet 0.5 mg PO UD PRN (Reason: gout attack) zinc acetate 50 mg (zinc) Capsule 50 mg PO DAILY cetirizine 10 mg Tablet 10 mg PO QAM clopidogrel [Plavix] 75 mg Tablet 75 mg PO QAM allopurinol 100 mg Tablet 100 mg PO BID spironolactone 25 mg Tablet 25 mg PO QAM pantoprazole 40 mg Tablet,Delayed Release (Dr/Ec) 40 mg PO QAM losartan 100 mg Tablet 100 mg PO QAM metoprolol tartrate 25 mg Tablet 25 mg PO BID albuterol sulfate 90 mcg/actuation Hfa Aerosol Inhaler 1 inh INHALATION QID PRN (Reason: Wheezing) Admission Data Admit Date/Time: 07/17/23 10:15 Attending Provider: Reginald Davies Admit Provider: Reginald Davies Primary Care Provider: Allan Araujo
[2023-07-18 07:07] LABS: BUN Creatinine Ratio 15.2 (10-20); Creatinine Clr Calc Pharmacy 60.7 ml/min; Est GFR (African American) 64.4 ml/min; Est GFR (Non-African American) 55.6 ml/min
[2023-07-18] MEDS: CETIRIZINE HCL 10 MG TABLET PO SCH (08:16)
[2023-07-18] MEDS: CLOPIDOGREL BISULFATE 75 MG TAB PO SCH (08:17)
[2023-07-18] MEDS: MULTIVITAMIN TAB PO SCH (08:18)
[2023-07-18] MEDS: CYANOCOBALAMIN (B-12) 500 MCG TABLET PO SCH (08:18)
[2023-07-18] MEDS: LOSARTAN POTASSIUM 50 MG TAB PO SCH (08:19)
[2023-07-18] MEDS: CHOLECALCIFEROL 25 MCG (1000 UNITS) TAB PO SCH (08:19)
== END 2023-07-18 11:44 | disposition home health service (06) ==
LOC: ASU 07:54 → 3E 07:54